=== PATIENT | female | born 1985 | race American Indian/Alaskan Native ===

== ENCOUNTER 2021-02-21 01:58 | Emergency (ER) | payer SELFPAY ==
[2021-02-21] MEDS ORDERED: ONDANSETRON 4 MG ODT TAB PO ONE (02:52)
[2021-02-21 03:27] LABS: Basophils % (Auto) 1.3 % (0.0-1.8); Eosinophils % (Auto) 0.2 % (0.0-4.3); Hematocrit 33.7 % (30.3-42.9); Hemoglobin 11.3 gm/dl (10.1-14.3); Lymphocytes # (Auto) 0.9 K/mm3 (1.2-5.4); Lymphocytes % (Auto) 26.3 % (13.4-35.0); Mean Corpuscular HGB Conc 34 % (30-34); Mean Corpuscular Volume 93 fl (79-97); Monocytes # (Auto) 0.5 K/mm3 (0.0-0.8); Monocytes % (Auto) 15.4 % (0.0-7.3); Platelet Count 258 K/mm3 (140-440); Red Blood Count 3.63 M/mm3 (3.65-5.03); Red Cell Distribution Width 14.7 % (13.2-15.2)
[2021-02-21 04:00] LABS: Alanine Aminotransferase 8 units/L (7-56); Albumin 4.1 g/dL (3.9-5); Blood Urea Nitrogen 8 mg/dL (7-17); Calcium 9.3 mg/dL (8.4-10.2); Hemolysis Index 1
[2021-02-21 04:04] LABS: BUN/Creatinine Ratio 11
[2021-02-21 04:36] LABS: Bilirubin,Urine NEG (Negative); Blood,Urine NEG (Negative); Color,Urine Yellow (Yellow); Mucus,Urine 3+ /HPF
== END 2021-02-21 03:00 | disposition left against medical advice (07) ==
LOC: ED 01:58
DX: R10.9 Unspecified abdominal pain (principal); Z53.21 Procedure and treatment not carried out due to patient leaving prior to being seen by health care provider
CPT/HCPCS: 36415; 80053; 81001; 83690; 84703; 85025; Q0162

== ENCOUNTER 2021-02-21 16:28 | Emergency (ER) | payer SELFPAY ==
[2021-02-21 18:02] VITALS: BP 102/55
--- NOTE | 2021-02-21 19:43 | Event Note ---
ED Screening Note ED Screening Note: RUQ intermittent for two weeks but worsened the last week +N/V no diarrhea no fever no blood in stool or vomit hx of PUD takes prilosec no past abdominal surgical hx allergy:lortab LNMP: last week This initial assessment/diagnostic orders/clinical plan/treatment(s) is/are subject to change based on patients health status, clinical progression and re- assessment by fellow clinical providers in the ED. Further treatment and workup at subsequent clinical providers discretion. Patient/guardian urged not to elope from the ED as their condition may be serious if not clinically assessed and managed. Initial orders include: labs, UA, US
--- NOTE | 2021-02-21 20:51 | Ultrasound Report ---
LIMITED RUQ ABDOMINAL ULTRASOUND INDICATION / CLINICAL INFORMATION: RUQ abd pain, n/v. COMPARISON: No relevant prior imaging study available. FINDINGS: PANCREAS: Visualized portions of the pancreas are within normal limits. ABDOMINAL AORTA: No significant abnormality. IVC: No significant abnormality. LIVER: The liver measures 15 cm in length. The liver demonstrates a normal echogenicity and morpholo gy. PORTAL VEIN: Normal hepatopedal blood flow in the main portal vein. GALLBLADDER: The gallbladder is unremarkable. There is no cholelithiasis, gallbladder wall thickening , or pericholecystic fluid. BILE DUCTS: No significant abnormality. Common bile duct measures 2 mm. RIGHT KIDNEY: No significant abnormality visualized. FREE FLUID: None. ADDITIONAL FINDINGS: None. IMPRESSION: No significant abnormality. Signer Name: Elvin Betts MD Signed: 02/21/2021 8:47 PM Workstation Name: [id number]
[2021-02-21] MEDS ORDERED: HYOSCYAMINE SUBL 0.125 MG TAB SL ONE (21:11)
[2021-02-21] MEDS ORDERED: ALUM-MAG HYDROXIDE-SIMETHICONE 200-200-20MG/5ML ORAL LIQD 30 ML PO STA (21:13)
[2021-02-21] MEDS ORDERED: LIDOCAINE VISCOUS 2% 15 ML ORAL LIQD PO ONE (21:13)
[2021-02-21] MEDS ORDERED: ONDANSETRON 4 MG ODT TAB PO STA (21:14)
[2021-02-21] MEDS ORDERED: SODIUM CHLORIDE 0.9% 1000 ML 1,000 ML IV ONE (22:07)
[2021-02-21] MEDS ORDERED: ONDANSETRON 4 MG/2 ML INJ IV ONE (22:08)
[2021-02-21] MEDS ORDERED: MORPHINE 4 MG/1 ML INJ IV ONE (22:08)
--- NOTE | 2021-02-21 22:45 | Emergency Department Report ---
ED Abdominal Pain HPI - General Chief Complaint: Abdominal Pain Stated Complaint: ABDOMINAL PAIN Time Seen by Provider: 02/21/21 19:41 Source: patient Mode of arrival: Ambulatory Limitations: No Limitations - History of Present Illness Initial Comments: 35-year-old F Portuguese female presents to the emergency emerge department complaining of a 1 week history of progressively worsening right upper quadrant pain associated with nausea and vomiting. Pain is worsened with with eating and relieved with vomiting. States this is been however considerable amount of stress and has a history of peptic ulcers and also had done some binge drinking which may have been the culprit of the pain. No diarrhea, no constipation, no hemoptysis, no no hematemesis no hematochezia no hematuria no dysuria no flank pain. MD Complaint: abdominal pain -: Gradual, Sudden Severity scale (0 -10): 4 - Related Data Previous Rx's Medication Instructions Recorded Last Taken Type Hyoscyamine Subl [Levsin Sl 0.125 0.125 mg SL Q4HR PRN #20 tablet 02/22/21 Unknown Rx TAB] traMADoL [Ultram] 50 mg PO Q4HR PRN #10 tablet 02/22/21 Unknown Rx Allergies Allergy/AdvReac Type Severity Reaction Status Date / Time hydrocodone [From Lortab] Allergy Unknown Verified 02/21/21 02:19 ED Review of Systems ROS: Stated complaint: ABDOMINAL PAIN Other details as noted in HPI Comment: All other systems reviewed and negative ED Past Medical Hx - Past Medical History Previous Medical History?: No - Surgical History Past Surgical History?: Yes Additional Surgical History: D&C, - Social History Smoking Status: Current Every Day Smoker Substance Use Type: None - Medications Home Medications: Home Medications Medication Instructions Recorded Confirmed Last Taken Type Hyoscyamine Subl [Levsin Sl 0.125 0.125 mg SL Q4HR PRN #20 tablet 02/22/21 Unknown Rx TAB] traMADoL [Ultram] 50 mg PO Q4HR PRN #10 tablet 02/22/21 Unknown Rx ED Physical Exam - General Limitations: No Limitations General appearance: alert, in no apparent distress - Head Head exam: Present: atraumatic, normocephalic - Eye Eye exam: Present: normal appearance, PERRL, EOMI Pupils: Present: normal accommodation - ENT ENT exam: Present: normal exam, normal orophraynx, mucous membranes moist - Neck Neck exam: Present: normal inspection, full ROM - Respiratory Respiratory exam: Present: normal lung sounds bilaterally. Absent: respiratory distress, wheezes, rales, chest wall tenderness - Cardiovascular Cardiovascular Exam: Present: regular rate, normal rhythm. Absent: systolic murmur, diastolic murmur, rubs, gallop - GI/Abdominal GI/Abdominal exam: Present: soft, tenderness, normal bowel sounds, other (Tenderness to the epigastric region with palpation. No distention no discoloration, no tenderness at McBurney's. No Jose sign, no Rovsing, no Barbosa Barroso) - Extremities Exam Extremities exam: Present: normal inspection - Back Exam Back exam: Present: normal inspection - Neurological Exam Neurological exam: Present: alert, oriented X3 - Psychiatric Psychiatric exam: Present: normal affect, normal mood - Skin Skin exam: Present: warm, dry, intact, normal color. Absent: rash ED Course Vital Signs 02/21/21 02/21/21 17:58 18:01 Temperature 98.1 F 98.1 F Pulse Rate 61 Respiratory 20 20 Rate Blood Pressure 89/50 102/55 O2 Sat by Pulse 98 Oximetry ED Medical Decision Making - Lab Data [address] [place] [address] Cat Scan Report Signed Patient: HORTENSIA DELVALLE MR#: [id number] : 1985 Acct:[id number] Age/Sex: 35 / F ADM Date: 02/21/21 Loc: ED Attending Dr: Ordering Physician: DOMENICO SCHROEDER Date of Service: 02/21/21 Procedure(s): CT abdomen pelvis w con Accession Number(s): [id number] cc: DOMENICO SCHROEDER CT ABDOMEN AND PELVIS WITH IV CONTRAST INDICATION: R.U.Q. and R.L.Q. abd pain with nausea and vomiting x 1 week. COMPARISON: Right upper quadrant ultrasound earlier today. TECHNIQUE: All CT scans at this facility use dose modulation, automated exposure control, iterative reconstruction or weight based dosing, when appropriate, to reduce radiation dose to as low as reaso nably achievable. FINDINGS: Lung Bases: No significant abnormality. Skeletal System: No acute abnormality. ABDOMEN: Liver: Mild steatosis. Gallbladder: No significant abnormality. Bile Ducts: No significant abnormality. Pancreas: No significant abnormality. Spleen: No significant abnormality. Adrenals: No significant abnormality. Right Kidney: No significant abnormality. Left Kidney: No significant abnormality. Upper GI tract: No significant abnormality. Lymph Nodes: No significant adenopathy. Aorta: No significant abnormality. Additional Findings: No significant abnormality. PELVIS: Colon: No acute abnormality. Urinary Bladder and Distal Ureters: No significant abnormality. Appendix: No significant abnormality. Lymph Nodes: No significant adenopathy. Additional Findings: None. IMPRESSION: 1. No acute process in the abdomen or pelvis. Signer Name: Juaquin Howard MD Signed: 02/21/2021 11:41 PM Workstation Name: [id number] Transcribed By: REJI Dictated By: Juaquin Howard MD Electronically Authenticated By: Juaquin Howard MD Signed Date/Time: 02/21/212340 DD/ 37 TD/TT: [address] [place] [address] Ultrasound Report Signed Patient: HORTENSIA DELVALLE MR#: [id number] : 1985 Acct:[id number] Age/Sex: 35 / F ADM Date: 02/21/21 Loc: ED Attending Dr: Ordering Physician: DOMENICO AUGUSTIN Date of Service: 02/21/21 Procedure(s): US abdomen limited Accession Number(s): [id number] cc: DOMENICO AUGUSTIN LIMITED RUQ ABDOMINAL ULTRASOUND INDICATION / CLINICAL INFORMATION: RUQ abd pain, n/v. COMPARISON: No relevant prior imaging study available. FINDINGS: PANCREAS: Visualized portions of the pancreas are within normal limits. ABDOMINAL AORTA: No significant abnormality. IVC: No significant abnormality. LIVER: The liver measures 15 cm in length. The liver demonstrates a normal echogenicity and morphology. PORTAL VEIN: Normal hepatopedal blood flow in the main portal vein. GALLBLADDER: The gallbladder is unremarkable. There is no cholelithiasis, gallbladder wall thickening, or pericholecystic fluid. BILE DUCTS: No significant abnormality. Common bile duct measures 2 mm. RIGHT KIDNEY: No significant abnormality visualized. FREE FLUID: None. ADDITIONAL FINDINGS: None. IMPRESSION: No significant abnormality. Signer Name: Reynaldo Betts MD Signed: 02/21/2021 8:47 PM Workstation Name: [id number] Transcribed By: SASHA Dictated By: REYNALDO BETTS MD Electronically Authenticated By: REYNALDO BETTS MD Signed Date/Time: 02/21/212046 DD/ 45 TD/TT: Print - Radiology Data Radiology results: [place] [address] Ultrasound Report Signed Patient: HORTENSIA DELVALLE MR#: [id number] : 1985 Acct:[id number] Age/Sex: 35 / F ADM Date: 02/21/21 Loc: ED Attending Dr: Ordering Physician: DOMENICO AUGUSTIN Date of Service: 02/21/21 Procedure(s): US abdomen limited Accession Number(s): [id number] cc: DOMENICO AUGUSTIN LIMITED RUQ ABDOMINAL ULTRASOUND INDICATION / CLINICAL INFORMATION: RUQ abd pain, n/v. COMPARISON: No relevant prior imaging study available. FINDINGS: PANCREAS: Visualized portions of the pancreas are within normal limits. ABDOMINAL AORTA: No significant abnormality. IVC: No significant abnormality. LIVER: The liver measures 15 cm in length. The liver demonstrates a normal echogenicity and morphology. PORTAL VEIN: Normal hepatopedal blood flow in the main portal vein. GALLBLADDER: The gallbladder is unremarkable. There is no cholelithiasis, gallbladder wall thickening, or pericholecystic fluid. BILE DUCTS: No significant abnormality. Common bile duct measures 2 mm. RIGHT KIDNEY: No significant abnormality visualized. FREE FLUID: None. ADDITIONAL FINDINGS: None. IMPRESSION: No significant abnormality. Signer Name: Reynaldo Betts MD Signed: 02/21/2021 8:47 PM Workstation Name: [id number] Transcribed By: SASHA Dictated By: REYNALDO BETTS MD Electronically Authenticated By: REYNALDO BETTS MD Signed Date/Time: 02/21/212046 DD/ 45 TD/TT: [facility] [place] [address] Cat Scan Report Signed Patient: HORTENSIA DELVALLE MR#: [id number] : 1985 Acct:[id number] Age/Sex: 35 / F ADM Date: 02/21/21 Loc: ED Attending Dr: Ordering Physician: DOMENICO SCHROEDER Date of Service: 02/21/21 Procedure(s): CT abdomen pelvis w con Accession Number(s): [id number] cc: DOMENICO SCHROEDER CT ABDOMEN AND PELVIS WITH IV CONTRAST INDICATION: R.U.Q. and R.L.Q. abd pain with nausea and vomiting x 1 week. COMPARISON: Right upper quadrant ultrasound earlier today. TECHNIQUE: All CT scans at this facility use dose modulation, automated exposure control, iterative reconstruction or weight based dosing, when appropriate, to reduce radiation dose to as low as reaso nably achievable. FINDINGS: Lung Bases: No significant abnormality. Skeletal System: No acute abnormality. ABDOMEN: Liver: Mild steatosis. Gallbladder: No significant abnormality. Bile Ducts: No significant abnormality. Pancreas: No significant abnormality. Spleen: No significant abnormality. Adrenals: No significant abnormality. Right Kidney: No significant abnormality. Left Kidney: No significant abnormality. Upper GI tract: No significant abnormality. Lymph Nodes: No significant adenopathy. Aorta: No significant abnormality. Additional Findings: No significant abnormality. PELVIS: Colon: No acute abnormality. Urinary Bladder and Distal Ureters: No significant abnormality. Appendix: No significant abnormality. Lymph Nodes: No significant adenopathy. Additional Findings: None. IMPRESSION: 1. No acute process in the abdomen or pelvis. Signer Name: Juaquin Howard MD Signed: 02/21/2021 11:41 PM Workstation Name: [id number] Transcribed By: REJI Dictated By: Juaquin Howard MD Electronically Authenticated By: Juaquin Howard MD Signed Date/Time: 02/21/212340 DD/ 37 TD/TT: Print Print - Medical Decision Making This patient presents with abdominal pain of unclear etiology. A CT scan was performed to evaluate for potential causes of the abdominal pain, however, neither the clinical exam nor the CT has identified an emergent etiology for the abdominal pain. Specifically, given the benign exam, the laboratory studies, and unremarkable CT, I have a very low suspicion for appendicitis, ischemic bowel, bowel perforation, or any other life threatening disease. I have discussed with the patient the level of uncertainty with undifferentiated abdominal pain and clearly explained the need to follow-up as noted on the discharge instructions, or return to the Emergency Department immediately if the pain worsens, develops fever, persistent and uncontrollable vomiting, or for any new symptoms or concerns. Peng the emergency department she was started on IV fluids and treated with multiple rounds Zofran in conjunction with Reglan which was also assisted with a GI cocktail and morphine. She did exhibits. Of significant improvement but pain did reemerge. Critical care attestation.: If time is entered above; I have spent that time in minutes in the direct care of this critically ill patient, excluding procedure time. ED Disposition Clinical Impression: Abdominal pain Disposition: - TO HOME OR SELFCARE Is pt being admited?: No Does the pt Need Aspirin: No Condition: Stable Instructions: Upper Endoscopy, Adult, Abdominal Pain, Adult, [id number], Pain Without a Known Cause, Abdominal Pain (ED) Prescriptions: Hyoscyamine Subl [Levsin Sl 0.125 TAB] 0.125 mg SL Q4HR PRN #20 tablet PRN Reason: Spasms traMADoL [Ultram] 50 mg PO Q4HR PRN #10 tablet PRN Reason: Pain Referrals: [facility] [Provider Group] - 3-5 Days RAPHAEL EDWARDS MD [Staff Physician] - 3-5 Days PRIMARY CAREMD [Primary Care Provider] - 3-5 Days
--- NOTE | 2021-02-21 23:46 | Cat Scan Report ---
CT ABDOMEN AND PELVIS WITH IV CONTRAST INDICATION: R.U.Q. and R.L.Q. abd pain with nausea and vomiting x 1 week. COMPARISON: Right upper quadrant ultrasound earlier today. TECHNIQUE: All CT scans at this facility use dose modulation, automated exposure control, iterative reconstructi on or weight based dosing, when appropriate, to reduce radiation dose to as low as reasonably achieva ble. FINDINGS: Lung Bases: No significant abnormality. Skeletal System: No acute abnormality. ABDOMEN: Liver: Mild steatosis. Gallbladder: No significant abnormality. Bile Ducts: No significant abnormality. Pancreas: No significant abnormality. Spleen: No significant abnormality. Adrenals: No significant abnormality. Right Kidney: No significant abnormality. Left Kidney: No significant abnormality. Upper GI tract: No significant abnormality. Lymph Nodes: No significant adenopathy. Aorta: No significant abnormality. Additional Findings: No significant abnormality. PELVIS: Colon: No acute abnormality. Urinary Bladder and Distal Ureters: No significant abnormality. Appendix: No significant abnormality. Lymph Nodes: No significant adenopathy. Additional Findings: None. IMPRESSION: 1. No acute process in the abdomen or pelvis. Signer Name: Juaquin Howard MD Signed: 02/21/2021 11:41 PM Workstation Name: [id number]
[2021-02-22] MEDS ORDERED: METOCLOPRAMIDE 10 MG/2 ML INJ IV ONE (00:55)
[2021-02-22] MEDS ORDERED: ACETAMINOPEN W/CODEINE 120-12MG ORAL LIQD 5 ML PO ONE (00:55)
[2021-02-22] MEDS ORDERED: METOCLOPRAMIDE 10 MG/2 ML INJ ONE (00:55)
== END 2021-02-22 01:14 | disposition home or self-care (01) ==
LOC: ED 16:28
DX: R10.11 Right upper quadrant pain (principal); F17.200 Nicotine dependence, unspecified, uncomplicated; Z79.899 Other long term (current) drug therapy
CPT/HCPCS: 74177; 76705; 96361; 96374; 96375; 99283; J2270; J2405; J2765; J7030; Q9967; Q0162